=== PATIENT | male | born 1960 | race Asian ===

== ENCOUNTER 2019-11-20 09:14 | Emergency (ER) | payer OTHER ==
[~2019-11-20] VITALS: Ht 182.9 cm; Wt 56.7 kg
[2019-11-20 09:26] VITALS: TEMP 97.3
[2019-11-20 10:08] LABS: POTASSIUM 3.6 mmol/L (3.6-5.2)
[2019-11-20 10:23] LABS: PARTIAL THROMBOPLASTIN TIME 26.7 SECONDS (24.5-33.6)
[2019-11-20 10:23] LABS: PLATELET COUNT 202 K/uL (142-355)
[2019-11-20 10:58] VITALS: BP 120/90
== END 2019-11-20 10:58 | disposition home or self-care (01) ==
LOC: ED 09:14
PROVIDERS: Emergency Medicine
DX: K64.4 Residual hemorrhoidal skin tags (principal)
CPT/HCPCS: 80053; 82272; 85027; 85610; 85730; 99283